=== PATIENT | female | born 1980 | race Caucasian/White ===

== ENCOUNTER 2019-10-26 16:03 | Emergency (ER) | payer OTHER, SELFPAY ==
--- NOTE | 2019-10-26 16:08 | ED.GENADULT ---
HPI - General Adult General Chief complaint: Skin/Abscess/Foreign Body Stated complaint: bite Time Seen by Provider: 10/26/19 16:40 Source: patient Mode of arrival: ambulatory Limitations: no limitations History of Present Illness HPI narrative: 38-year-old female patient presents to the [facility] with complaints of a wasp bite to the back of her right leg x3 days. Patient states that she was stung she thinks about 2 or 3 times by the was on the back of her leg. Patient states she has been using ice as well as taking Benadryl but states that she has been measuring the redness and it continues to spread. Denies any chest pain, shortness of breath. Denies any fevers. Patient states she does have pain and tenderness to the area. Related Data Allergies Allergy/AdvReac Type Severity Reaction Status Date / Time No Known Allergies Allergy Mild Verified 10/26/19 16:31 Review of Systems Review of Systems: Narrative: CONSTITUTIONAL: Denies fever, chills, or sweats. EYES: Denies visual changes, redness, or discharge. ENT: Denies rhinorrhea, congestion, sore throat, or otalgia. CARDIOVASCULAR: Denies chest pain, palpitations, or edema. RESPIRATORY: Denies cough or dyspnea. GASTROINTESTINAL: Denies abdominal pain, nausea, vomiting, or diarrhea. GENITOURINARY: Denies dysuria or hematuria. SKIN: Denies rash or itching. Positive wasp bite to right leg x3 days MUSCULOSKELETAL: Denies back pain, joint pain, or myalgia. NEUROLOGIC: Denies headache, numbness, or weakness. PSYCHIATRIC: Denies anxiety or depression. PMFSH Comments At the time of my signature I agree with nursing past medical history, surgical, social, and family history. There is no relevant family history pertinent to the presenting complaint. Exam Narrative: Exam Narrative: GENERAL: Well-appearing, well-nourished, and in no acute distress. HEAD: Normocephalic, atraumatic. EYES: PERRLA and EOMI. ENT: Nares clear, no rhinorrhea or epistaxis. Mucous membranes moist. NECK: Supple. No lymphadenopathy CHEST: Clear to auscultation. No respiratory distress. HEART: Regular rate and rhythm. No murmur heard. Normal peripheral pulses. ABDOMEN: Soft, nontender, nondistended, normal active bowel sounds. EXTREMITIES: Normal range of motion. No edema. SKIN: Warm, dry, no rash. Patient does have a punctate home in the center of some surrounding redness to the posterior right leg below the posterior knee. Redness measuring approximately 20 x 20. Not much warm to the touch patient has been having ice on it. No discharge noted at this time. NEURO: No focal deficits. Alert and oriented x3. Course Vital Signs Vital signs: Vital Signs Temperature 37.3 C 10/26/19 16:22 Pulse Rate 76 10/26/19 16:22 Respiratory Rate 20 10/26/19 16:22 Blood Pressure 148/88 H 10/26/19 16:22 Pulse Oximetry 100 10/26/19 16:22 Temperature 37.3 C 10/26/19 16:22 Pulse Rate 76 10/26/19 16:22 Respiratory Rate 20 10/26/19 16:22 Blood Pressure 148/88 H 10/26/19 16:22 Pulse Oximetry 100 10/26/19 16:22 Vital signs reviewed. The patient has been informed that they may have pre-hypertension or Hypertension based on a BP reading in the department. I recommend that the patient call the primary care provider listed on their discharge instructions or a physician of their choice this week to arrange follow up for further evaluation of possible pre-hypertension or Hypertension Medical Decision Making Differential Diagnosis Differential Diagnosis: Differential diagnosis: Abscess, cellulitis, hidradenitis, laceration, puncture wound. Discussed with patient it does appear that she has developed a cellulitis from the wasp bite. Discussed with patient I want her to continue to monitor the redness and we will go ahead and put her on some antibiotics today. Discussed with her she can continue using ice and Benadryl to help with her symptoms but I would also include some warm packs to the area as
[2019-10-26 16:22] VITALS: BP 148/88; PULSE 76; RESP 20; TEMP 37.3; O2SAT 100
== END 2019-10-26 17:04 | disposition home or self-care (01) ==
PROVIDERS: Emergency Provider Nurse Practitioner Family; PCP Family Medicine
DX: S80.861A Insect bite (nonvenomous), right lower leg, initial encounter (principal); L03.115 Cellulitis of right lower limb; W57.XXXA Bitten or stung by nonvenomous insect and other nonvenomous arthropods, initial encounter
CPT/HCPCS: 99213; G0463

== ENCOUNTER 2020-02-29 09:57 | Outpatient (CLI) | payer OTHER, SELFPAY ==
--- NOTE | 2020-03-10 12:23 | WPDPFTINT ---
PFT Interpretation PFT Interpretation: This PFT met all criteria for ATS standards and reproducibility FEV/FVC post bronchodilator 81% FEV1 101% FVC 96% TLC 96% RV 89% RV/TLC 31% DLCO 96% when adjusted for alveolar volume but not adjusted for hemoglobin Flow volume loops were normal Impression: Normal PFT. Clinical correlation is advised.
== END 2020-02-29 09:58 | disposition home or self-care (01) ==
PROVIDERS: PCP Family Medicine; Visit Provider Family Medicine
DX: R06.2 Wheezing (principal)
CPT/HCPCS: 94375; 94726; 94729

== ENCOUNTER 2021-09-15 08:09 | Emergency (ER) | payer OTHER, SELFPAY ==
[2021-09-15 08:17] VITALS: BP 190/97; PULSE 74; RESP 18; TEMP 36.9; O2SAT 100
--- NOTE | 2021-09-15 08:54 | ED.GENADULT ---
HPI - General Adult General Chief complaint: Skin/Abscess/Foreign Body Stated complaint: Sever Rectal irratation Source: patient Mode of arrival: ambulatory Limitations: no limitations History of Present Illness HPI narrative: Patient presents for evaluation of anal and vaginal irritation. She states she has had anal irritation for the past ten years. She states symptoms are usually mild. However in the last 5 weeks symptoms have worsened. She states that the area is pruritic but denies pain per se. She saw her PCP and was given an antifungal which was ineffective. She tried hydrocortisone cream, which did not work. She used preparation H which seemed to help. No rectal discomfort. She does not engage in receptive anal intercourse. She notes chronic discharge vaginally, although as of late it has been more thick. She is sexually active with her . He is asymptomatic. She has had normal PAP's historically. No hx of colonoscopy. She works at an [employer] and states she has been exposed to ringworm. She has had cold sores in the past but does not believe she has ever had HSV in genital region. Related Data Home Medications Medication Instructions Recorded Confirmed norethindrone 1.5 mg-ethinyl 1 tablet PO DAILY 09/15/21 09/15/21 estradiol 30 mcg(21)/iron 75 mg(7) tablet ( FE .08/20 (28)) Allergies Allergy/AdvReac Type Severity Reaction Status Date / Time No Known Allergies Allergy Mild Verified 09/15/21 08:31 Review of Systems Review of Systems: CONSTITUTIONAL: Denies fever, chills, or sweats. EYES: Denies visual changes, redness, or discharge. ENT: Denies rhinorrhea, congestion, sore throat, or otalgia. CARDIOVASCULAR: Denies chest pain, palpitations, or edema. RESPIRATORY: Denies cough or dyspnea. GASTROINTESTINAL: Denies abdominal pain, nausea, vomiting, or diarrhea. GENITOURINARY: Reports thick vaginal discharge. Denies dysuria or hematuria. SKIN: Reports itching and irritation in the vaginal and anal region. MUSCULOSKELETAL: Denies back pain, joint pain, or myalgia. NEUROLOGIC: Denies headache, numbness, dizziness, or weakness. PSYCHIATRIC: Denies anxiety or depression. [facility] Past Medical History Medical History (Updated 09/15/21 @ 09:08 by Car Resendez, [facility], ) Sinusitis Surgical History Surgical History History of Family History Family History Mother Unknown family medical history Social History Social History Smoking status: Never smoker Substance use: never Living arrangements: with family Gender identity (if verbalized by the patient): Female Sexual Orientation (if Verbalized by the Patient): Straight or Heterosexual Spiritual care concerns: No Exam Narrative: GENERAL: Well-appearing, well-nourished, and in no acute distress. HEAD: Normocephalic, atraumatic. EYES: PERRLA and EOMI. ENT: Nares clear, no rhinorrhea or epistaxis. Mucous membranes moist. Oropharynx without tonsillar hypertrophy exudate or other lesions. Bilateral TMs pearly ellison nonbulging NECK: Supple. No adenopathy or masses. No carotid bruits or JVD CHEST: Clear to auscultation. No respiratory distress. No wheezes rales or rhonchi HEART: Regular rate and rhythm. No murmur heard. Normal peripheral pulses. ABDOMEN: Soft, nontender, nondistended, normal active bowel sounds. EXTREMITIES: Normal range of motion. No edema. GENITAL: There is a thick white mucus consistent vaginal discharge. Cervix is friable. SKIN: There are few ulcerative lesions surrounding the anus and in the mucosa of the labia which are all approximately 2 mm in size. NEURO: No focal deficits. Alert and oriented x3. PSYCH: Normal mood and affect. Course Course Emergency Course: This is a 40-year-old female who presented
[2021-09-15 09:10] VITALS: BP 164/80
== END 2021-09-15 09:10 | disposition home or self-care (01) ==
PROVIDERS: Emergency Provider Nurse Practitioner; PCP Family Medicine
DX: N76.0 Acute vaginitis (principal); I10 Essential (primary) hypertension
CPT/HCPCS: 87070; 87255; 87491; 87591; 87661; 99214; G0463

== ENCOUNTER 2021-12-08 14:01 | Emergency (ER) | payer OTHER, SELFPAY ==
[2021-12-08 14:22] VITALS: BP 166/78; PULSE 98; RESP 16; TEMP 37.7; O2SAT 100
--- NOTE | 2021-12-08 15:19 | ED.URI ---
HPI - URI/Sore Throat General Chief Complaint: Upper Respiratory Infection Stated Complaint: cough Source: patient, RN notes reviewed and old records reviewed History of Present Illness HPI Narrative: 40 year old female with complaints of cough for total of 17 days. Patient states from 22 November she has had progressively increased amounts of cough with coughing fits, chronic sinusitis history, and allergies.Patient reports that she has had some head congestion and nasal drainage. Patient reports that cough is worse in the morning. She states that she has been taking NyQuil and DayQuil some Delsym and also has taken some Mucinex MD elicited complaint: cough and sore throat Pertinent past history: sinusitis and seasonal allergies Related Data Home Medications Medication Instructions Recorded Confirmed norethindrone 1.5 mg-ethinyl 1 tablet PO DAILY 12/08/21 12/08/21 estradiol 30 mcg(21)/iron 75 mg(7) tablet ( FE .08/20 (28)) Allergies Allergy/AdvReac Type Severity Reaction Status Date / Time No Known Allergies Allergy Mild Verified 12/08/21 15:30 Review of Systems Review of Systems: CONSTITUTIONAL: Denies fever, chills, or sweats. EYES: Denies visual changes, redness, or discharge. ENT: positive for rhinorrhea, congestion, sore throat, or otalgia. CARDIOVASCULAR: Denies chest pain, palpitations, or edema. RESPIRATORY: positive for cough denies dyspnea. GASTROINTESTINAL: Denies abdominal pain, nausea, vomiting, or diarrhea. GENITOURINARY: Denies dysuria or hematuria. SKIN: Denies rash or itching. MUSCULOSKELETAL: Denies back pain, joint pain, or myalgia. NEUROLOGIC: Denies headache, numbness, or weakness. PSYCHIATRIC: Denies anxiety or depression. All systems reviewed & are unremarkable except as noted in HPI and below PMFSH Past Medical History Medical History (Updated 12/11/21 @ 15:58 by Tatiana Madrid NP) Seasonal allergies Sinusitis Surgical History Surgical History History of Family History Family History Mother Unknown family medical history Social History Social History Smoking status: Never smoker Substance use: never Gender identity (if verbalized by the patient): Female Sexual Orientation (if Verbalized by the Patient): Straight or Heterosexual Spiritual care concerns: No Comments At time of signature, agree with nursing past medical, surgical, social and family history. There is no relevant family history pertinent to the presenting complaint Exam Narrative: GENERAL: Well-appearing, well-nourished, and in no acute distress. HEAD: Normocephalic, atraumatic. EYES: PERRLA and EOMI. ENT: Nares red with clear rhinorrhea no epistaxis. Mucous membranes moist.TM's normal with good light reflex, throat with mild redness no lesions or tonsil swelling,post nasal drainage present. NECK: Supple.no lymphadenopathy CHEST: clear to auscultation. No respiratory distress. harsh cough SAO2 100% on room air , no dyspnea HEART: Regular rate and rhythm. No murmur heard. Normal peripheral pulses. ABDOMEN: Soft, nontender, nondistended, normal active bowel sounds. EXTREMITIES: Normal range of motion. No edema. SKIN: Warm, dry, no rash. NEURO: No focal deficits. Alert and oriented x3. Course Course Level of Care: Express Care Visit Vital Signs Vital signs: Vital Signs Temperature 37.7 C H 12/08/21 14:22 Pulse Rate 98 12/08/21 14:22 Respiratory Rate 16 12/08/21 14:22 Blood Pressure 166/78 H 12/08/21 14:22 Pulse Oximetry 100 12/08/21 14:22 Oxygen Delivery Room Air 12/08/21 14:22 Temperature 37.7 C H 12/08/21 14:22 Pulse Rate 98 12/08/21 14:22 Respiratory Rate 16 12/08/21 14:22 Blood Pressure 166/78 H 12/08/21 14:22 Pulse Oximetry 100 12/08/21 14:22 Oxygen Delive
== END 2021-12-08 15:45 | disposition home or self-care (01) ==
PROVIDERS: Emergency Provider Registered Nurse; PCP Family Medicine
DX: J32.9 Chronic sinusitis, unspecified (principal); R05.9 Cough, unspecified
CPT/HCPCS: 99213; G0463

== ENCOUNTER 2022-04-16 08:07 | Outpatient (CLI) | payer OTHER, SELFPAY ==
--- NOTE | 2022-04-16 08:19 | ECG_ITS ---
Measurements Intervals [place] Rate: 63 P: 36 ID: 149 QRS: 65 QRSD: 98 T: 44 QT: 411 QTc: 423 Interpretive Statements SINUS RHYTHM BASELINE ARTIFACT- I, II, III, AVR, AVL, AVF NORMAL ECG NO PREVIOUS ECG AVAILABLE FOR COMPARISON Electronically Signed On 04-16-2022 8:39:42 [employer] by Melvin Barker D.O.
[2022-04-16 08:42] LABS: Anion Gap 7 mmol/L (8-16); Blood Urea Nitrogen 12 mg/dL (7-17); Calcium 9.3 mg/dL (8.4-10.2); Carbon Dioxide 29 mmol/L (22-30); Chloride 106 mmol/L (98-107); Estimated Glomerular Filt Rate > 60; Glucose 98 mg/dL (65-110); Sodium 142 mmol/L (137-145)
== END 2022-04-16 08:08 | disposition home or self-care (01) ==
PROVIDERS: Anesthesiology; PCP Family Medicine; Visit Provider Obstetrics & Gynecology
DX: I10 Essential (primary) hypertension (principal); Z79.899 Other long term (current) drug therapy
CPT/HCPCS: 36415; 80048; 93005

== ENCOUNTER 2022-04-17 00:46 | Day surgery (SDC) | payer OTHER, SELFPAY ==
[2022-04-09 09:58] VITALS: BMI 23.7
--- NOTE | 2022-04-09 10:03 | PC.NURSE ---
Report to the Outpatient Waiting Room, entrance under the green pavilion located off [facility], at time 10:00 on date 04/17/22. Planned Procedure Time: 12:00. Time changes happen often and if your time is changed the preop area will call you the afternoon before. - You and your visitor will be asked to self-screen and do not enter if you have any COVID symptoms. - Only one visitor is requested with a max of two and NO children visitors are allowed at this time. - The patient visitor may be requested to leave or wait in car when not with patient due to distancing restrictions. - A mask is optional within the hospital. Patients may have clear liquids (water, carbonated beverages, clear teas, apple juice) until 3 hours prior to surgery (9:00) with a maximum of 20 ounces. - No food from midnight until time of surgery Take the following medications with a SIP of water the morning of surgery: NONE Medications to discontinue per physician: N/A Date to take last dose: N/A Please no make-up, nail wolof, hairspray, perfume, deodorant, or body powder the day of surgery. No jewelry (including any body piercings) or valuables the day of surgery, leave them at home. Please take a shower or bath the night before, or the morning of, surgery with an antibacterial soap. Wear comfortable, loose fitting clothing. - Jewelry must be removed prior to entering the operating room. Rings and piercings that are not removed may be cut off. - The hospital will not accept responsibility for valuables. - Please leave all valuables, including medications, at home the day of surgery. If you are going home after surgery, a licensed transit driver must drive you home. - NO public transportation without another adult if you receive anesthesia. - We recommend that an adult stay with you for 24 hours following discharge. - We also recommend that you do not drive, make important decision, drink alcoholic beverages, or take any drugs that were not prescribed by your health care provider for at least 24 hours after your discharge time. Follow any additional instructions given to you from your surgeon. If you or anyone in your household have experienced Covid symptoms in the past week, please notify your surgeon or the nurse liaison at the phone number below for possible testing. Telephone instructions given to PT - RICHY CUMMINS and asked if any additional questions and then verbalized understanding. Patient advised to call surgeon office or pre surgery nurse liaison [phone] if any additional questions.
[2022-04-17] VITALS (11 sets, daily range): BP systolic 112–143; BP diastolic 66–89; PULSE 60–78; RESP 12–19; TEMP 36.2–36.5; O2SAT 100
--- NOTE | 2022-04-17 07:16 | WPDHPUPDATE1 ---
History and Physical Update Update Date/Time: 04/17/22 07:16 History and Physical has been reviewed, including an updated exam of the patient. There are NO changes in the patient's condition. Risks, benefits, and alternatives have been discussed and questions answered. Patient agrees to proceed with procedure.
--- NOTE | 2022-04-17 07:42 | WPDANESEPPF ---
Anes - Initial Pre Proc Eval Procedure: Operation Date: 04/17/22 12:00 Proposed Procedures p Laparoscopic Bilateral Salpingectomy, Hysteroscopy, Endometrial Ablation - Doreen Hudson MD Date/Time: 04/17/22 07:42 Surgeon: Doreen Hudson MD Pre Op Diagnosis: sterilization, menorrhaghia Patient Data Age: 41 Gender: F Height: 1.68 m Weight: 66.7 kg Allergies Allergy/AdvReac Type Severity Reaction Status Date / Time No Known Allergies Allergy Mild Verified 04/09/22 09:57 Home Medications Medication Instructions Recorded Confirmed Type drospirenone (contraceptive) 4 mg 1 tablet PO HS 04/09/22 04/09/22 History (28) tablet (Slynd) losartan 100 1 tablet PO DAILY 04/09/22 04/09/22 History mg-hydrochlorothiazide 12.5 mg tablet Patient hx anesthesia problems: none Family hx anesthesia problems: none Results Review: All pre-operative results and documents have been reviewed as part of the pre-operative evaluation. [facility] Past Medical History Medical History (Updated 04/17/22 @ 07:42 by Ron Smith DO) Hypertension Seasonal allergies Sinusitis Surgical History Surgical History History of Family History Family History Mother Unknown family medical history Social History Social History Smoking status: Never smoker Alcohol intake: never Substance use: never Substance use type: does not use Living arrangements: with family Gender identity (if verbalized by the patient): Female Sexual Orientation (if Verbalized by the Patient): Straight or Heterosexual Spiritual care concerns: No Anes - Eval Final PreProcedure Day of Procedure 04/17/22 07:42 Patient weight: normal Heart: regular rate and rhythm Lungs: clear to auscultation Airway: Mallampati scale class II Neurological: alert and oriented Last oral intake: >/= 8 hours ASA classification: II Emergent: no Anesthetic plan: proceed Anesthesia type and monitoring: general ETT and standard monitoring Results Review: All pre-operative results and documents have been reviewed as part of the pre-operative evaluation. Informed Consent: The patient's anesthetic plan and its attendant risks and benefits were discussed with the patient/family/POA. Questions were solicited and answers provided to the satisfaction of the patient/family/POA.
[2022-04-17] MEDS: LACTATED RINGERS 1,000 ML 30 ML IV CONT ×2 (10:10→12:31)
[2022-04-17] MEDS: ACETAMINOPHEN 500 MG TABLET 1000 MG PO (10:15)
[2022-04-17] MEDS: KETOROLAC 15 MG/ML VIAL (*BKC) IV PUSH (10:15)
--- NOTE | 2022-04-17 10:37 | WPDHPUPDATE1 ---
History and Physical Update Update Date/Time: 04/17/22 10:37 History and Physical has been reviewed, including an updated exam of the patient. There are NO changes in the patient's condition. Risks, benefits, and alternatives have been discussed and questions answered. Patient agrees to proceed with procedure.
--- NOTE | 2022-04-17 11:59 | P.OP_ITS ---
Procedure Note - Detailed Date of Procedure 04/17/22 Pre-op Diagnosis sterilization, menorrhaghia Post-op Diagnosis Same Procedure Performed Laparoscopic bilateral salpingectomy with endometrial ablation and hysteroscopy. Surgeon Doreen Hudson MD Anesthesia General Indications Menorrhagia, female sterilization Findings normal pelvic anatomy, normal vulva,vaginal and cervix Description of Procedure Patient was taken the operating room. She has prepped draped in the dorsal lithotomy position after induction of general anesthesia. A 5 mm abdominal incision was made in left upper quadrant of the abdomen with scalpel. A 5 mm trocars inserted the intra-abdominal cavity under direct visualization of the scope. Pneumoperitoneum was achieved. A 5 mm periumbilical incision was made using a scalpel on the abdominal scan. A 5 mm trocar was inserted the intra- abdominal cavity under visualization of the scope. A 5 mm incision made left lower quadrant of the abdomen. A 5 mm trocar was inserted the intra-abdominal cavity and direct visualization of the scope. The bilateral fallopian tubes were removed. The paratubal tissue in the area of the uterus was grasped with the LigaSure cautery and transected after being cauterized. The paratubal tissue from the ovary to the uterine cornu was cauterized and transected with LigaSure cautery. This was all done in a bilateral fashion. The tube was transected at the area of the uterine cornua and the tubes was removed through the 5 mm trocar site. The pneumoperitoneum was reduced. The trocars were removed. The skin was closed with subcuticular 4 Monocryl and covered with Dermabond. Our attention was then turned to the endometrial ablation portion of the procedure. A speculum was placed in the vagina. The cervix was grasped with a tenaculum. The cervix was dilated to approximately 8 mm with Garcia dilators. The hysteroscope was inserted. And the below findings were noted. Measurements of the cervix were taken using the uterine sound and the hysteroscope. The intrauterine cavity measurements were entered into the handpiece. The device was inserted into the intrauterine cavity and the array was expanded. The balloon cuff was inflated. When an adequate seal was formed the safety and energy cycles were initiated and completed. The array was collapsed, the balloon was deflated. The insert was withdrawn. The hysteroscope was reinserted and a well desiccated intrauterine cavity was observed. The patient was taken recovery room stable condition. Sponge lap and needle counts were correct x2. She tolerated the procedure well. Estimated Blood Loss 5 Pathology Yes Complications No immediate complications Condition Stable Disposition PACU
[2022-04-17] MEDS: fentaNYL CITRATE INJ (*CRX) 100 MCG/2 ML VIAL 25 MCG IV PUSH ×2 (12:24→12:27)
[2022-04-17] MEDS: oxyCODONE HCL (*CRX) 5 MG TAB IR PO (13:25)
== END 2022-04-17 14:41 | disposition home or self-care (01) ==
PROVIDERS: PCP Family Medicine; Visit Provider Obstetrics & Gynecology
PROC: 0UDB8ZZ Extraction of Endometrium, Via Natural or Artificial Opening Endoscopic (ICD-10-PCS; CPT 58558; principal; 2022-04-17 12:00)
DX: Z30.2 Encounter for sterilization (principal); N92.0 Excessive and frequent menstruation with regular cycle; N83.8 Other noninflammatory disorders of ovary, fallopian tube and broad ligament; I10 Essential (primary) hypertension
CPT/HCPCS: 58563; 58661; 88302; A9270; J1100; J1170; J1885; J2250; J2405; J2704; J3010; J7030; J7120

== ENCOUNTER 2023-10-12 13:08 | Emergency (ER) | payer OTHER, SELFPAY ==
[2023-10-12 13:17] VITALS: BP 132/83; PULSE 64; RESP 18; TEMP 36.8; O2SAT 100
--- NOTE | 2023-10-12 14:27 | ED.GENADULT ---
HPI - General Adult General Chief complaint: Wound/Laceration Stated complaint: Skin Problem Source: patient Mode of arrival: ambulatory Limitations: no limitations History of Present Illness HPI narrative: Patient presents for evaluation of redness swelling to the anterior aspect of the right lower extremity. She states she was stung by a wasp yesterday. She has noted progressively worsening symptoms today. She reports a raised area of erythema to the anterior aspect of the right lower extremity. She has associated pruritus. No fever chills, nausea, vomiting. She is not diabetic. She applied topical benadryl and hydrocortisone without improvement. Related Data Allergies Allergy/AdvReac Type Severity Reaction Status Date / Time No Known Allergies Allergy Mild Verified 04/17/22 10:22 Review of Systems Review of Systems: CONSTITUTIONAL: Denies fever, chills, or sweats. EYES: Denies visual changes, redness, or discharge. ENT: Denies rhinorrhea, congestion, sore throat, or otalgia. CARDIOVASCULAR: Denies chest pain, palpitations RESPIRATORY: Denies cough or dyspnea. GASTROINTESTINAL: Denies abdominal pain, nausea, vomiting, or diarrhea. GENITOURINARY: Denies dysuria or hematuria. SKIN: Reports redness and itching to the anterior aspect of the right lower extremity MUSCULOSKELETAL: Reports swelling and pain in the anterior aspect the right lower extremity NEUROLOGIC: Denies headache, numbness, dizziness, or weakness. PSYCHIATRIC: Denies anxiety or depression. [facility] Past Medical History Medical History Hypertension Seasonal allergies Sinusitis Surgical History Surgical History History of Family History Family History Mother Unknown family medical history Social History Social History Smoking status: Never smoker Alcohol intake: never Substance use: never Substance use type: does not use Living arrangements: with family Gender identity (if verbalized by the patient): Female Sexual Orientation (if Verbalized by the Patient): Straight or Heterosexual Spiritual care concerns: No Exam Narrative: GENERAL: Well-appearing, well-nourished, and in no acute distress. HEAD: Normocephalic, atraumatic. EYES: PERRLA and EOMI. ENT: Nares clear, no rhinorrhea or epistaxis. Mucous membranes moist. Oropharynx without tonsillar hypertrophy exudate or other lesions. Bilateral TMs pearly ellison nonbulging NECK: Supple. No adenopathy or masses. No carotid bruits or JVD CHEST: Clear to auscultation. No respiratory distress. No wheezes rales or rhonchi HEART: Regular rate and rhythm. No murmur heard. Normal peripheral pulses. ABDOMEN: Soft, nontender, nondistended, normal active bowel sounds. EXTREMITIES: Normal range of motion. No edema. SKIN: There is a 5 x 9 area of erythema in an annular appearance to the anterior aspect of the right lower extremity within a 10 x 9 cm area of raised swelling NEURO: No focal deficits. Alert and oriented x3. PSYCH: Normal mood and affect. Course Course Emergency Course: This is a 42-year-old female who presented for evaluation pain, itching, redness and swelling in the anterior aspect the right lower leg. Exam is consistent with insect bite. She may have a developing cellulitis. Will discharge with Medrol Dosepak, cephalexin, Benadryl and Diflucan. Follow-up primary provider. Go to the ER for worsening symptoms. Patient in agreement with plan of care Level of Care: Express Care Visit Vital Signs Vital signs: Vital Signs Temperature 36.8 C 10/12/23 13:17 Pulse Rate 64 10/12/23 13:17 Respiratory Rate 18 10/12/23 13:17 Blood Pressure 132/83 10/12/23 13:17 Pulse Oximetry 100 10/12/23 13:17 Oxygen De
== END 2023-10-12 14:12 | disposition home or self-care (01) ==
PROVIDERS: Emergency Provider Nurse Practitioner
DX: S80.861A Insect bite (nonvenomous), right lower leg, initial encounter (principal); W57.XXXA Bitten or stung by nonvenomous insect and other nonvenomous arthropods, initial encounter; I10 Essential (primary) hypertension
CPT/HCPCS: 99213; G0463

== ENCOUNTER 2024-10-20 08:03 | Emergency (ER) | payer OTHER, SELFPAY ==
[2024-10-20 08:12] VITALS: BP 128/83; PULSE 67; RESP 18; TEMP 36.6; O2SAT 100
--- OUTSIDE RECORDS SUMMARY | 2024-10-20 08:12 | XMS_ITS | Clinical Summary ---
Author Organization [facility] Address [address] [place] [address] Care Team Providers Care Customer Service Advisor Name Role Phone Unavailable Primary Care Provider Unavailabl e Source Comments [facility],non-owned Affiliates and Associated Physician Practices is amultiple site organization consisting of ambulatory clinics and hospital sitesin [place], [place], [place] and [place]. This disclosure is being madepursuant to the Care Everywhere program and may not contain all information available regarding this patient. Last updated 17.[employer] Allergies No known active allergies Medications * Be aware that medications may not be up to date on this document. Alwaysverify current medications with the patient. Levonorgest-Eth Estrad 91-Day (SEASONIQUE PO) Acti ve Active Problems No known active problems Social History Tobacco Use Types Packs/Day Years Used Date Smoking Tobacco: Never Smokeless Tobacco: Never Tobacco Cessation:Counseling Given: Yes Comments No Sex and Gender Information Value Date Recorded Sex Assigned at Not on file Legal Sex Female 3:58 PM SENIOR CARE SPECIALIST Gender Identity Not on file Sexual Orientation Not on file Last Filed Vital Signs Vital Sign Reading Time Taken Comments Blood Pressure 110/62 08/02/2018 10:01 AM CDT Pulse 63 08/02/2018 10:01 AM CDT Temperature 37.1 C (98.8 F) 08/02/2018 10:01 AM CDT Respiratory Rate 16 05/03/2017 10:32 AM SENIOR CARE SPECIALIST Oxygen Saturation 98% 08/02/2018 10:01 AM CDT Inhaled Oxygen Concentration - - Weight 63.5 kg (140 lb) 08/02/2018 10:01 AM CDT Height 167.6 cm (5' 6) 08/02/2018 10:01 AM CDT Body Mass Index 22.6 08/02/2018 10:01 AM CDT Plan of Treatment Health Maintenance Due Date Last Done Comments LIPID TESTING 1979 MAMMOGRAM 1979 HIV SCREENING 12/24/1994 HEPATITIS C SCREENING 12/20/1997 DTAP/TDAP/TD VACCINES (1 - Tdap) 12/24/1998 HEPATITIS B VACCINE (1 of 3 - 19+ 3-dose series) 12/24/1998 HPV VACCINE (1 - 3-dose SCDM series) 12/24/2006 COVID-19 VACCINE ( - 2023-2 5 season) 2023 DEPRESSION SCREENING 03/24/2024 INFLUENZA VACCINE (#1) 2024 ZOSTER VACCINE (1 of 2) 12/24/2029 HIB VACCINE Aged Out No longer eligi ble based on patient's age to complete this topic MENINGOCOCCAL (Group B) VACC INE SHARED DECISION-MAKING Aged Out No longer eligibl e based on patient's age to complete this topic MENINGOCOCCAL GROUPS A/C/Y/W VACCINE Aged Out No longer eligible b ased on patient's age to complete this topic PNEUMOCOCCAL VACCINE Aged Out No long er eligible based on patient's age to complete this topic Insurance [facility]
--- OUTSIDE RECORDS SUMMARY | 2024-10-20 08:12 | XMS_ITS | Referral Summary ---
Author Organization [facility] Address [address] [place] [address] Care Team Providers Care Clerical Associate Name Role Phone José Antonio Short Primary Care Provider + Allergies No known active allergies Medications clotrimazole-be tamethasone (LOTRISONE) lotion Apply topically 2 (two) times a day Active dicyclomine (BENTYL) 10 mg capsule Take 1 capsule (10 mg total) by mouth every 6 (six) hours as needed (cramping, bloating and diarrhea) 120 capsule 3 Active Additional Information Patient not taking.Reported on 12/30/2023 Active Problems Problem Noted Date Diagnosed Date Diarrhea 11/25/2023 Screen for colon cancer 11/25/2023 Dysphagia 11/25/2023 Social History Tobacco Use Types Packs/Day Years Used Date Smoking Tobacco: Never Tobacco Cessation:Counseling Given: Not Answered Alcohol Use Standard Drinks/Week Comments No 0 (1 standard drink = 0.6 oz pur e alcohol) AUDIT-C Answer Date Recorded Q1: How often do you have a drink containing alc ohol? Never 04/08/2024 Q2: How many drinks containi ng alcohol do you have on a typical day when you are drinking? 1 or 2 04/08/2024 Q3: How often do you have six or more drinks on one occasion? Never 04/08/2024 Personal Safety Answer Date Recorded Have you ever been in or are you currently in a harmful physical or emotional relationship or is someone making you feel afraid or unsafe? Denies 04/12/2024 Comments Unknown Sex and Gender Information Value Date Recorded Sex Assigned at Not on file Legal Sex Female 12:49 AM HOSPICE VOLUNTEER Gender Identity Not on file Sexual Orientation Not on file Last Filed Vital Signs Vital Sign Reading Time Taken Comments Blood Pressure 163/86 04/12/2024 12:25 PM HOSPICE VOLUNTEER Pulse 64 04/12/2024 12:25 PM HOSPICE VOLUNTEER Temperature 36.8 C (98.2 F) 04/12/2024 12:25 PM HOSPICE VOLUNTEER Respiratory Rate 18 04/12/2024 12:25 PM HOSPICE VOLUNTEER Oxygen Saturation 100% 04/12/2024 12:25 PM HOSPICE VOLUNTEER Inhaled Oxygen Concentration - - Weight 61.2 kg (135 lb) 04/12/2024 10:41 AM HOSPICE VOLUNTEER Height 167.6 cm (5' 6) 04/12/2024 10:41 AM HOSPICE VOLUNTEER Body Mass Index 21.79 04/12/2024 10:41 AM HOSPICE VOLUNTEER Plan of Treatment Not on file Insurance [employer] [id number] Advance Directives For more information, please contact: [phone] * Full Code (Latest Code Status on File) Date Activated Date Inactivated Comments 04/12/2024 10:33 AM 04/12/2024 4:35 PM * Full Code Date Activated Date Inactivated Comments 04/12/2024 10:33 AM 04/12/2024 10:33 AM Care Teams Clerical Associate Relationship Specialty Start Date End Date José Antonio Short PA [facility] [place], [place] [id number] PCP - General Internal Medicine 09/02/23
--- OUTSIDE RECORDS SUMMARY | 2024-10-20 08:12 | XMS_ITS | Clinical Summary ---
Author Organization [facility] Address [address] [place] [address] Care Team Providers Care Oracle Scm Consultant Name Role Phone Unavailable Primary Care Provider Unavailabl e Encounters Date Type Department Care Team Description 10/06/2024 External Device Data [facility] ABSTRACTION Provider, Abstract 10/06/2024 External Device Data [facility] ABSTRACTION Provider, Abstract 10/06/2024 External Device Data [facility] ABSTRACTION Provider, Abstract 09/08/2024 External Device Data [facility] ABSTRACTION Provider, Abstract 08/17/2024 External Device Data [facility] ABSTRACTION Provider, Abstract 08/12/2024 External Device Data [facility] ABSTRACTION Provider, Abstract 08/11/2024 External Device Data [facility] ABSTRACTION Provider, Abstract from Last 3 Months Social History Tobacco Use Types Packs/Day Years Used Date Smoking Tobacco: Never Assessed Comments Unknown Sex and Gender Information Value Date Recorded Sex Assigned at Not on file Legal Sex Female 8:55 AM CDT Gender Identity Not on file Sexual Orientation Not on file Plan of Treatment Health Maintenance Due Date Last Done Comments HPV VACCINES (1 - 3-dose series) 12/24/1994 DTAP/TDAP/TD VACCINES (1 - Tdap) 12/24/1998 HEPATITIS B VACCINES (1 of 3 - 19+ 3-dose series) 05/1998 HPV/Cotest (21-29) 12/24/2000 CERVICAL CANCER SCREENING 12/24/2009 HPV/Cotest (30-65) 12/24/2009 PAP SMEAR 12/24/2009 BREAST CANCER SCREENING 2019 INFLUENZA VACCINE (#1) 2024 Insurance
--- OUTSIDE RECORDS SUMMARY | 2024-10-20 08:12 | XMS_ITS | Clinical Summary ---
Author Organization [facility] Address [address] [place] [address] Care Team Providers Care Tax Compliance Manager Name Role Phone José Antonio Short Primary [...] Screen for colon cancer 11/25/2023 Dysphagia 11/25/2023 Surgical History Surgery Date Site/Laterality Comments SECTION 2005 section COLONOSCOPY 04/12/2024 UPPER GASTROINTESTINAL ENDOSCOPY 04/12/2024 TUBAL LIGATION Family History Medical History Relation Name Comments Other Father 2 Alive and well; Other Mother 2 Alive and well; Relation Name Status Comments Father 1 Alive Father 2 Mother 1 Alive Mother 2 Social History Tobacco Use Types Packs/Day Years [...] on file Legal Sex Female 12:49 AM BALING MACHINE TENDER Gender Identity Not on file Sexual Orientation Not on file Obstetrics History Last Filed Vital Signs Vital Sign Reading Time Taken Comments Blood Pressure 163/86 04/12/2024 12:25 PM BALING MACHINE TENDER Pulse 64 04/12/2024 12:25 PM BALING MACHINE TENDER Temperature 36.8 C (98.2 F) 04/12/2024 12:25 PM BALING MACHINE TENDER Respiratory Rate 18 04/12/2024 12:25 PM BALING MACHINE TENDER Oxygen Saturation 100% 04/12/2024 12:25 PM BALING MACHINE TENDER Inhaled Oxygen Concentration - - Weight 61.2 kg (135 lb) 04/12/2024 10:41 AM BALING MACHINE TENDER Height 167.6 cm (5' 6) 04/12/2024 10:41 AM BALING MACHINE TENDER Body Mass Index 21.79 04/12/2024 10:41 AM BALING MACHINE TENDER Plan of Treatment Health Maintenance Due Date Last Done Comments Breast Cancer Screening-Mammogram 1979 Cervical Cancer Screening 1979 Depression Screening 1979 Hepatitis C Screening 1979 DTaP/Tdap/Td Vaccine (1 - Tdap) 12/24/1990 Varicella Vaccines (1 of 2 - 13+ 2-dose series) 12/24/1992 Hepatitis B Screening 12/24/1997 Regular Well Visit/Exam 18-64 12/24/1997 HPV Vaccines (1 - 3-dose SCD M series) 12/24/2006 Covid-19 Vaccine (3 - 2023-2 5 season) 2023 03/27/2021, 05/29/2020 Influenza Vaccine (#1) 2024 Pneumococcal vaccine <65 Aged Out No longer eligible based on patient's age to complete this topic Insurance [employer] [phone] Advance Directives For more information, please contact: [phone] * Full Code (Latest Code Status on File) Date Activated Date Inactivated Comments 04/12/2024 10:33 AM 04/12/2024 4:35 PM * Full Code Date Activated Date Inactivated Comments 04/12/2024 10:33 AM 04/12/2024 10:33 AM Care Teams Tax Compliance Manager Relationship Specialty Start Date End Date José Antonio Short PA [facility] [address] PCP - General Internal Medicine 09/02/23
--- NOTE | 2024-10-20 08:15 | ED.URI ---
HPI - URI/Sore Throat General Chief Complaint: Upper Respiratory Infection Stated Complaint: Sinus Problem Time Seen by Provider: 10/20/24 08:15 Source: patient Mode of arrival: ambulatory Limitations: no limitations History of Present Illness HPI Narrative: 43-year-old female presents with complaint of chronic sinusitis. Patient reports nasal congestion, sinus pressure, postnasal drainage, throat irritation for the past week. Symptoms getting progressively worse with low-grade fever and fatigue starting yesterday. Reports that drainage went from cloudy to green. Not taking any [id number] medications to treat symptoms. Has never seen ENT for chronic sinusitis. All systems reviewed and negative except as noted above. Related Data Allergies Allergy/AdvReac Type Severity Reaction Status Date / Time No Known Allergies Allergy Mild Verified 10/20/24 08:18 [facility] Past Medical History Medical History Hypertension Seasonal allergies Sinusitis Surgical History Surgical History History of Family History Family History Mother Unknown family medical history Social History Social History Smoking status: Never smoker Alcohol intake: never Substance use: never Substance use type: does not use Living arrangements: with family Gender identity (if verbalized by the patient): Female Sexual Orientation (if Verbalized by the Patient): Straight or Heterosexual Spiritual care concerns: No Comments At time of signature, agree with nursing past medical, surgical, social and family history. There is no relevant family history pertinent to the presenting complaint. Exam Narrative: GENERAL: This is a well-nourished, well-developed patient, Ill-appearing but no acute distress HEAD: normocephalic, atraumatic. EYES: PERRL. Sclera clear/white. Vision is grossly intact. EARS: External ears normal, auditory canals clear and without drainage, fluid bilateral TMs without erythema. No perforation bilaterally. Hearing intact. NOSE: External nose normal with Purulent nasal drainage with erythema to bilateral nares. Ethmoid sinus tenderness bilaterally. THROAT: Mucous membranes moist, Postnasal drainage with mild erythema. No swelling or exudates. NECK: Neck supple, non-tender without lymphadenopathy, masses or thyromegaly. CARDIOVASCULAR: Regular rate and rhythm without murmurs, gallops, or rubs. RESPIRATORY: Clear to auscultation. Breath sounds equal bilaterally. No wheezes, rales, or rhonchi. SKIN: warm, Dry, intact with no suspicious lesions or rash, good texture and turgor. NEURO: awake, alert, and oriented to person, place and time. There were no obvious focal neurologic abnormalities. EXTREMITIES: No joint tenderness, effusion, or edema noted. Course Course Level of Care: Express Care Visit Vital Signs Vital signs: Vital Signs Temperature 36.6 C 10/20/24 08:12 Pulse Rate 67 10/20/24 08:12 Respiratory Rate 18 10/20/24 08:12 Blood Pressure 128/83 10/20/24 08:12 Pulse Oximetry 100 10/20/24 08:12 Oxygen Delivery Room Air 10/20/24 08:12 Temperature 36.6 C 10/20/24 08:12 Pulse Rate 67 10/20/24 08:12 Respiratory Rate 18 10/20/24 08:12 Blood Pressure 128/83 10/20/24 08:12 Pulse Oximetry 100 10/20/24 08:12 Oxygen Delivery Room Air 10/20/24 08:12 Reviewed MDM - URI/Sore Throat MDM Narrative Medical decision making narrative: will treat bacterial sinusitis with antibiotic Due to duration of symptoms and exam findings. Lungs clear to auscultation. Patient agrees with plan of care. Patient alert, nontoxic. Differential Diagnosis Differential diagnosis: Likely upper respiratory infection, sinusitis, viral infection and influenza Discharge Plan Discharge Clinical Impression: Acute bacterial sinusitis Patient Disposition: Home Condition: Stable Instructions: Antibiotic Form, Sinusitis (ED) Additional Instructions: take antibiotic as prescribed. Continue taking a daily antihistamine such as Claritin or Zyrtec. take [id number] pseudoephedrine as directed on packaging. Drink at least 64 oz of water a day. See your primary care physician if symptoms are not improving. Patient Language: Honduran Prescriptions: New amoxicillin-pot clavulanate 875-125 mg tablet 1 tablet PO Q12H 7 Days Qty: 14 0RF Follow-up/Referrals: PHYSICIAN,SPECIMEN PROCESSOR [Primary Care Provider] - Time of Disposition: 08:26
== END 2024-10-20 08:35 | disposition home or self-care (01) ==
PROVIDERS: Emergency Provider Nurse Practitioner Family
DX: J01.90 Acute sinusitis, unspecified (principal); I10 Essential (primary) hypertension
CPT/HCPCS: 99213; G0463